=== PATIENT | female | born 1985 | race Caucasian/White ===

== ENCOUNTER 2018-09-23 22:21 | Emergency (ER) | payer MEDICAID ==
--- NOTE | 2018-09-23 22:49 | ED Physician Chart ---
ED Chief Complaint/HPI - Patient Information Date Seen:: 09/23/18 Time Seen:: 22:40 Chief Complaint:: Scalp laceration. History of Present Illness:: Pt came in by private auto because pt accidentally fell during skate boarding at about 9 pm today. No LOC. No LINARES. No visual changes in terms of blurry vision or diplopia. No N/V. No weakness or numbness. No ataxia. Last tetanus immunization is unknown. Allergies:: Allergies Allergy/AdvReac Type Severity Reaction Status Date / Time Penicillins Allergy Verified 09/23/18 22:42 Vitals:: see Nurse Note. Historian:: Patient Family MD/PCP:: unknown. LMP:: 09/15/2018 Review:: Nurse's Note Reviewed ED Review of Systems - Review of Systems General/Constitutional: No fever, No weight loss, No loss of appetite Skin: No rash, No bruising Head: No headache, No light-headedness Eyes: No loss of vision, No pain, No diplopia ENT: No earache, No nasal drainage, No sore throat Neck: No neck pain, No swelling, No stiffness, No mass noted Cardio Vascular: No chest pain Pulmonary: No SOB, No cough, No wheezing GI: No nausea, No vomiting, No pain G/U: No dysuria, No frequency, No hematuria Combiner Operator: No vaginal discharge, No abnormal vaginal bleed Musculoskeletal: No bone or joint pain Psychiatric: No prior psych history Hematopoietic: No bruising, No lymphadenopathy Allergic/Immuno: No urticaria, No angioedema Neurological: No syncope, No focal symptoms, No weakness, No paresthesia, No headache, No seizure, No dizziness, No confusion, No vertigo ED Past Medical History - Past Medical History Past Medical History: HTN Family History: None Social History: Smoker (Pt has been informed about health risks associated with tobacco use and has been advised to quit. Pt has been encouraged to enroll in a smoking cessation program. Pt acknowledges understanding. ), No Alcohol, No Drug Use, Single Employment:: Unemployed. Surgical History: None Psychiatricy History: None Medication: Reviewed Family Medical History - Family Member Mother History Unknown: Yes ED Physical Exam - Physical Examination General/Constitutional: Awake, Well-developed, well-nourished (female), Alert, No distress, GCS 15, Non-toxic appearing, Ambulatory Other Gen/Cons comments:: Breathe comfortably, speaks clearly, and interacts appropriatley. Head: Atraumatic ( except there is an approx. 0.6 cm transverse wound at mid posterior occipital scalp that is naturally approximated. No indentation. No active bleeding.) Eyes: Lids, conjuctiva normal, PERRL, EOMI Skin: Nl inspection, No skin lesions, Well hydrated, No lymphadenopathy ENMT: External ears, nose nl, TM canals nl, Nasal exam nl, Lips, teeth, gums nl , Oropharynx nl, Tonsils nl Neck: Nontender, Full ROM w/o pain, No JVD, No nuchal rigidity, No mass Respiratory: Nl effort/Exclusion, Clear to Auscultation, No Wheeze/Rhonchi/Rales Cardio Vascular: RRR, No murmur, gallop, rubs GI: No tenderness/rebounding/guarding, No organomegaly, No hernia, Normal BS's, Nondistended, No mass/bruits, No McBurney tenderness : No CVA tenderness Extremities: No tenderness or effusion, Full ROM, No edema, Normal digits & nails Neuro/Psych: Alert/oriented (oriented x 3. No focal findings.) ED Septic Shock - . Is Septic Shock (SBP<90, OR Lactate>4 mmol\L) present?: No ED Reassessment (Disposition) - Reassessment Reassessment:: 1120 Pt remains comfortable and stable. Discussed with pt at length about various options for wound care. Pt declined to have any suturing or stapling because the wound is closed naturally. Pt requests to go home now. Aftercare instructions have been given. Reassessment Condition:: Improved - Diagnosis Diagnosis:: Mechanical fall with mild occipital scalp laceration that naturally approximates. - Aftercare/Follow up Instructions Aftercare/Follow-Up Instructions:: Refer to Discharge Instructions Notes:: Bed rest for today. Safety instructions given regarding wearing protective gears when engaging in sport. Wound care instructions given. Keep wound clean and dry. Head injury instructions given. May take Tylenol 500 mg tab one tab by mouth every 6 hours as needed for pain. F/U with Dr. Ruiz or PCP of pt's choice in one day for recheck, sooner if condition worsens or if any further questions/problems. Medication Prescribed:: None - Patient Disposition Discharge/Transfer:: Home Time:: 23:25 Condition at Disposition:: Stable, Improved
[2018-09-23] MEDS ORDERED: Triple Antibiotic 0.94 gm Pkt TP STA (23:09)
== END 2018-09-23 23:30 | disposition home or self-care (01) ==
LOC: ER 22:21
DX: S01.01XA Laceration without foreign body of scalp, initial encounter (principal); I10 Essential (primary) hypertension; Z88.0 Allergy status to penicillin; V00.131A Fall from skateboard, initial encounter; Y93.51 Activity, roller skating (inline) and skateboarding; Y92.89 Other specified places as the place of occurrence of the external cause; Y99.8 Other external cause status
CPT/HCPCS: Z7502